=== PATIENT | male | born 1945 | race Caucasian/White ===

== ENCOUNTER 2021-04-16 13:32 | Observation (INO) | payer MEDICARE, MEDICAID, SELFPAY ==
[2021-04-16 13:42] VITALS: BP 130/87; PULSE 80; RESP 15; TEMP 37.1; O2SAT 96; BMI 33.5
--- NOTE | 2021-04-16 13:48 | ECG_ITS ---
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 Measurements Intervals [place] Rate: 83 P: 26 ID: 175 QRS: -30 QRSD: 107 T: 47 QT: 388 QTc: 457 Interpretive Statements SINUS RHYTHM BORDERLINE LEFT AXIS DEVIATION [QRS AXIS < -20] NONSPECIFIC T-WAVE ABNORMALITY No previous ECG available for comparison Electronically Signed On 04-16-2021 21:32:36 CDT by Jesus Velazquez M.D. [id number]
--- NOTE | 2021-04-16 13:48 | XRR_ITS ---
PROCEDURE INFORMATION: Exam: XR Chest Exam date and time: 04/16/2021 1:48 PM Age: 75 years old Clinical indication: Pain; On breathing; Additional info: Chest pain TECHNIQUE: Imaging protocol: XR of the chest. Views: 1 view. COMPARISON: No relevant prior studies available. FINDINGS: Lungs: Unremarkable. No consolidation. Pleural spaces: Unremarkable. No pleural effusion. No pneumothorax. Heart/Mediastinum: Unremarkable. No cardiomegaly. Bones/joints: Unremarkable. XR/XR chest 1V portable [id number] IMPRESSION: No acute findings.
[2021-04-16 13:58] VITALS: BP 130/87; PULSE 81; RESP 15; O2SAT 95
[2021-04-16 14:15] LABS: Basophils # 0.1 10^3/uL (0.0-0.1); Basophils % 0.6 %; Eosinophils % 0.2 %; Hematocrit 46.8 % (42.0-52.0); Hemoglobin 15.3 g/dL (11.7-16.6); Lymphocytes # 1.5 10^3/uL (0.8-4.8); Lymphocytes % 10.8 %; Mean Corpuscular HGB Conc 32.7 g/dL (30.0-36.0); Mean Corpuscular Hemoglobin 31.3 pg (28.0-34.0); Mean Corpuscular Volume 95.7 fl (80-94); Mean Platelet Volume 10.7 fL (7.4-10.4); Monocytes # 1.1 10^3/uL (0.2-0.9); Monocytes % 7.9 %; Neutrophils # 11.33 10^3/uL (1.8-7.7); Neutrophils % 80.2 %; Nucleated Red Blood Cells % 0 %; Platelet Count 196 10^3/cmm (130-400); Red Blood Count 4.89 10^6/uL (4.1-5.3); Red Cell Distribution Width 12.4 % (12.1-15.1); White Blood Count 14.1 10^3/uL (4.0-10.0)
[2021-04-16 14:35] LABS: Troponin(5th) Baseline 9 ng/L (0-15)
[2021-04-16 14:39] LABS: Blood Urea Nitrogen 13 mg/dL (8-23); Calcium 9.1 mg/dL (8.5-10.5); Carbon Dioxide 21 mmol/L (22-29); Chloride 102 mmol/L (98-107); Glucose 182 mg/dL (65-115); Osmolality Calculated 285 mOsm/kg (285-295); Sodium 135 mmol/L (136-145)
[2021-04-16 14:53] LABS: Anion Gap 16.6 (5-19); Potassium 4.6 mmol/L (3.5-5.1)
[2021-04-16 15:00] VITALS: BP 152/109; PULSE 75; RESP 22; O2SAT 97
[2021-04-16] MEDS: aspirin 325 mg Tablet PO (15:46)
[2021-04-16] MEDS: lidocaine 2% viscous 15 ML, aluminum-mag hydrox-simethicon 30 ML, sucralfate oral liq 1 GM PO (15:46)
--- NOTE | 2021-04-16 15:47 | W.ED.GENADLT ---
HPI - General Adult General: Chief complaint: Chest Pain Stated complaint: CHEST PAIN Time Seen by Provider: 04/16/21 13:33 History of Present Illness: HPI narrative: CC: Chest Pain HPI: This is a [75] yo patient hx of HTN, CVA DM presenting to the ED w/ acute onset intermittent substernal chest pain since 6pm yesterday night. Has shortness of breath since onset of symptom. Pain is not tearing in nature and does not radiate to the back. Denies any recent sympathomimetic drug use. Patient denies any cough. Denies palpitations, syncope symptoms. Pain not positional. No recent immobility, surgery, unilateral leg swelling, or prior PE. Patient denies any orthopnea, paroxysmal nocturnal dyspnea, weight gain, or increased leg swellings. One episode of nausea/vomiting today. Onset: 14 hrs ago Duration: ongoing for the last day Location: home Severity: moderate Review of Systems Narrative: Constitutional: No fever, no chills. HEENT: No vision changes, no sore throat. CV: +chest pain, no palpitations. PULM: No cough, +dyspnea. GI: No abdominal pain, +N/+V/-D. : No dysuria, no frequency, no hematuria. MSKEL: No arthralgias, no edema. SKIN: No new rashes, no lesions. NEURO: No headache, no focal weakness. HEME: No easy bleeding or bruising. PSYCH: No change in mood or affect. [facility] ED PFSH: Medical History (Updated 04/16/21 @ 16:46 by Juanjo Morgan MD) CVA (cerebral vascular accident) Dementia GERD (gastroesophageal reflux disease) Hiatal hernia HLD (hyperlipidemia) HTN (hypertension) Hypothyroid Type 2 diabetes mellitus Surgical History (Updated 04/16/21 @ 16:47 by Juanjo Morgan MD) No significant past surgical history Family History (Updated 04/16/21 @ 16:47 by Juanjo Morgan MD) Other CAD (coronary artery disease) Cancer Clotting disorder Diabetes Social History (Updated 04/16/21 @ 16:47 by Juanjo Morgan MD) Smoking and tobacco status: former smoker Alcohol intake: never Substance/Drug Use: never Caregiver/support person: No Lives independently: Yes Housing: Other Details: trailor Marital status: / Physical Exam Narrative: EXAM NARRATIVE: Head: Atraumatic, normocephalic Eyes: PERRL, EOMI, conjunctiva without injection ENT: Throat without erythema, lesions or exudate, MMM NECK: Supple, trachea midline, no JVD LUNGS: LCTA CV: RRR, S1,S2, no murmurs, rubs, gallops. 2+ peripheral pulses in UEs ABDOMEN: Soft, nontender, nondistended, BS x4, no rigidity, no guarding, no rebound EXTREMITY: Normal ROM, no pitting edema, no calf tenderness to palpation SKIN: No rash or erythema NEURO: Awake and alert. No focal motor deficits. PSYCH: Normal mood and affect. Course Vital Signs: Vital signs: Vital Signs Temperature 98.1 F 04/17/21 04:00 Pulse Rate 65 04/17/21 04:00 Respiratory Rate 16 04/17/21 04:00 Blood Pressure 118/68 04/17/21 04:00 Pulse Oximetry 94 04/17/21 04:00 MDM - General Adult MDM Narrative: Medical decision making narrative: [75]yo patient w/ extensive cardiac hx presenting to the ED With acute substernal chest pain X 14 hrs. Currently chest pain free Given History And Exam today I have moderate to high suspicion for ACS/UA/NSTEMI. Today, I have NO suspicion for pneumothorax, pneumonia, pulmonary embolus, tamponade, aortic dissection or other emergent problem as a cause for this presentation. ECG did not show any signs of acute STEMI. Workup: ECG, CXR, CBC, BMP, Troponin Findings: ECG: No overt evidence of STEMI, hyperacute T waves, localizable STD or T wave inversions. Intervention: ASA 324mg [3:20pm] On reassessment, the patient is currently chest pain free. S/p ASA 325mg. Initial ECG showed no overt STEs. Patient did not require a nitroglycerin drip to control chest pain. Pending repeat troponin. Disposition: Inpatient admission Lab Data: Labs: Lab Results 04/16/21 04/16/21 04/16/21 Range/Units 14:00 14:00 14:00 WBC 14.1 H (4.0-10.0) 10^3/ uL RBC 4.89 (4.1-5.3) 10^6/u L Hgb 15.3 (11.7-16.6) g/dL Hct 46.8 (42.0-52.0) % MCV 95.7 H (80-94) fl MCH 31.3 (28.0-34.0) pg MCHC 32.7 (30.0-36.0) g/dL RDW 12.4 (12.1-15.1) % Plt Count 196 (130-400) 10^3/c mm MPV 10.7 H (7.4-10.4) fL Neut % (Auto) 80.2 % Lymph % (Auto) 10.8 % Labette % (Auto) 7.9 % Eos % (Auto) 0.2 % Baso % (Auto) 0.6 % Neut # (Auto) 11.33 H (1.8-7.7) 10^3/u L Lymph # (Auto) 1.5 (0.8-4.8) 10^3/u L Labette # (Auto) 1.1 H (0.2-0.9) 10^3/u L Eos # (Auto) 0.0 (0.0-0.8) 10^3/u L Baso # (Auto) 0.1 (0.0-0.1) 10^3/u L Nucleated RBC % (a uto) 0 % Nucleated RBCs # 0.0 /100WBC Sodium 135 L (136-145) mmol/L Potassium 4.6 (3.5-5.1) mmol/L Chloride 102 (98-107) mmol/L Carbon Dioxide 21 L (22-29) mmol/L Anion Gap 16.6 (5-19) BUN 13 (8-23) mg/dL Creatinine 0.5 L (0.7-1.2) mg/dL GFR Calculation Not Reportable Glucose 182 H (65-115) mg/dL Calculated Osmolal ity 285 (285-295) mOsm/k g Calcium 9.1 (8.5-10.5) mg/dL Iron (59-158) ug/dL TIBC mcg/dl % Saturation (20-50) % Unsat Iron Binding (112-347) ug/dL Total Bilirubin (0.15-1.2) mg/dL Direct Bilirubin (0.00-0.30) mg/d L AST (0-40) U/L ALT (0-41) U/L Alkaline Phosphata se (40-130) IU/L Troponin T Baselin e 9 (0-15) ng/L NT-Pro-B Natriuret Pep (0-125) pg/mL Total Protein (6.6-8.7) g/dL Albumin (3.5-5.2) g/dL Globulin (1.3-4.6) g/dL Vitamin B12 (232-1245) pg/mL Folate (4.5-32.2) ng/mL Procalcitonin (0-0.5) ng/mL TSH (0.27-4.20) uIU/ mL SARS-CoV-2 Ag (Rap id) (Negative) 04/16/21 04/16/21 04/16/21 Range/Units 14:00 14:00 14:00 WBC (4.0-10.0) 10^3/ uL RBC (4.1-5.3) 10^6/u L Hgb (11.7-16.6) g/dL Hct (42.0-52.0) % MCV (80-94) fl MCH (28.0-34.0) pg MCHC (30.0-36.0) g/dL RDW (12.1-15.1) % Plt Count (130-400) 10^3/c mm MPV (7.4-10.4) fL Neut % (Auto) % Lymph % (Auto) % Labette % (Auto) % Eos % (Auto) % Baso % (Auto) % Neut # (Auto) (1.8-7.7) 10^3/u L Lymph # (Auto) (0.8-4.8) 10^3/u L Labette # (Auto) (0.2-0.9) 10^3/u L Eos # (Auto) (0.0-0.8) 10^3/u L Baso # (Auto) (0.0-0.1) 10^3/u L Nucleated RBC % (a uto) % Nucleated RBCs # /100WBC Sodium (136-145) mmol/L Potassium (3.5-5.1) mmol/L Chloride (98-107) mmol/L Carbon Dioxide (22-29) mmol/L Anion Gap (5-19) BUN (8-23) mg/dL Creatinine (0.7-1.2) mg/dL GFR Calculation Glucose (65-115) mg/dL Calculated Osmolal ity (285-295) mOsm/k g Calcium (8.5-10.5) mg/dL Iron 48 L (59-158) ug/dL TIBC 327 mcg/dl % Saturation 14.6 L (20-50) % Unsat Iron Binding 279 (112-347) ug/dL Total Bilirubin 2.1 H (0.15-1.2) mg/dL Direct Bilirubin 0.30 (0.00-0.30) mg/d L AST 24 (0-40) U/L ALT 23 (0-41) U/L Alkaline Phosphata se 65 (40-130) IU/L Troponin T Baselin e (0-15) ng/L NT-Pro-B Natriuret Pep 218 H (0-125) pg/mL Total Protein 7.3 (6.6-8.7) g/dL Albumin 4.2 (3.5-5.2) g/dL Globulin 3.1 (1.3-4.6) g/dL Vitamin B12 (232-1245) pg/mL Folate (4.5-32.2) ng/mL Procalcitonin 0.06 (0-0.5) ng/mL TSH 1.37 (0.27-4.20) uIU/ mL SARS-CoV-2 Ag (Rap id) (Negative) 04/16/21 04/16/21 04/16/21 Range/Units 14:00 14:00 14:55 WBC (4.0-10.0) 10^3/ uL RBC (4.1-5.3) 10^6/u L Hgb (11.7-16.6) g/dL Hct (42.0-52.0) % MCV (80-94) fl MCH (28.0-34.0) pg MCHC (30.0-36.0) g/dL RDW (12.1-15.1) % Plt Count (130-400) 10^3/c mm MPV (7.4-10.4) fL Neut % (Auto) % Lymph % (Auto) % Labette % (Auto) % Eos % (Auto) % Baso % (Auto) % Neut # (Auto) (1.8-7.7) 10^3/u L Lymph # (Auto) (0.8-4.8) 10^3/u L Labette # (Auto) (0.2-0.9) 10^3/u L Eos # (Auto) (0.0-0.8) 10^3/u L Baso # (Auto) (0.0-0.1) 10^3/u L Nucleated RBC % (a uto) % Nucleated RBCs # /100WBC Sodium (136-145) mmol/L Potassium (3.5-5.1) mmol/L Chloride (98-107) mmol/L Carbon Dioxide (22-29) mmol/L Anion Gap (5-19) BUN (8-23) mg/dL Creatinine (0.7-1.2) mg/dL GFR Calculation Glucose (65-115) mg/dL Calculated Osmolal ity (285-295) mOsm/k g Calcium (8.5-10.5) mg/dL Iron (59-158) ug/dL TIBC mcg/dl % Saturation (20-50) % Unsat Iron Binding (112-347) ug/dL Total Bilirubin (0.15-1.2) mg/dL Direct Bilirubin (0.00-0.30) mg/d L AST (0-40) U/L ALT (0-41) U/L Alkaline Phosphata se (40-130) IU/L Troponin T Baselin e (0-15) ng/L NT-Pro-B Natriuret Pep (0-125) pg/mL Total Protein (6.6-8.7) g/dL Albumin (3.5-5.2) g/dL Globulin (1.3-4.6) g/dL Vitamin B12 344 (232-1245) pg/mL Folate 8.8 (4.5-32.2) ng/mL Procalcitonin (0-0.5) ng/mL TSH (0.27-4.20) uIU/ mL SARS-CoV-2 Ag (Rap id) Negative (Negative) Imaging Data^: Other Imaging: Radiologist's impression: [employer] [address]JBsm ReportSigned Patient: Usama Pisano #: [id number]: 1945cct#:[id number]/Sex: 75 / MADM Date: 04/16/21Loc: ERRoom/Bed:Attending Dr: Ordering Provider/Ordering MD: Hernandez Jasso MD Date of Service: 04/16/21 Procedure(s): XR chest 1V portable [id number] Accession Number(s): [id number] Report Number: [id number] PROCEDURE INFORMATION: Exam: XR Chest Exam date and time: 04/16/2021 1:48 PM Age: 75 years old Clinical indication: Pain; On breathing; Additional info: Chest pain TECHNIQUE: Imaging protocol: XR of the chest. Views: 1 view. COMPARISON: No relevant prior studies available. FINDINGS: Lungs: Unremarkable. No consolidation. Pleural spaces: Unremarkable. No pleural effusion. No pneumothorax. Heart/Mediastinum: Unremarkable. No cardiomegaly. Bones/joints: Unremarkable. XR/XR chest 1V portable [id number] IMPRESSION: No acute findings. Dictated By:Kelly Cobb By:Kelly Cobb Date/Time:04/16/21 1514DD/ 1513 Discharge Plan Discharge Patient Disposition: Admitted As Inpatient Admit Provider: Juanjo Morgan Clinical Impression: Chest pain Condition: Stable Coding Level of Care Code ED Consulting Analyst for Francisco J Friedman
--- NOTE | 2021-04-16 15:48 | ECG_ITS ---
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 Measurements Intervals [place] Rate: 76 P: 12 [place]: 182 QRS: -25 QRSD: 108 T: 52 QT: 387 QTc: 437 Interpretive Statements SINUS RHYTHM BORDERLINE LEFT AXIS DEVIATION [QRS AXIS < -20] NONSPECIFIC T-WAVE ABNORMALITY Compared to ECG 04/16/2021 13:58:13 No significant changes Electronically Signed On 04-16-2021 22:07:10 CDT by Jesus Velazquez M.D. [id number]
[2021-04-16 15:49] VITALS: BP 162/90; PULSE 85; RESP 21; O2SAT 98
--- NOTE | 2021-04-16 15:52 | PC.PHAR ---
pt unable to verify due to memory problems. pt states his daughter can verify medications. Called Daughter Desire at [phone] with no answer.
[2021-04-16 15:57] LABS: SARS Covid-2 Antigen Negative (Negative)
--- NOTE | 2021-04-16 16:13 | CTR_ITS ---
PROCEDURE INFORMATION: Exam: CTA Chest With Contrast Exam date and time: 04/16/2021 4:13 PM Age: 75 years old Clinical indication: Other: Chest pain; Additional info: Chest pain, ? ? pe, TECHNIQUE: Imaging protocol: Computed tomographic angiography of the chest with contrast. 3D rendering (Not supervised by radiologist): MIP and/or 3D reconstructed images were created by the technologist. Radiation optimization: All CT scans at this facility use at least one of these dose optimization techniques: automated exposure control; mA and/or kV adjustment per patient size (includes targeted exams where dose is matched to clinical indication); or iterative reconstruction. Contrast material: OMNI 350; Contrast volume: 74 ml; Contrast route: INTRAVENOUS (IV); COMPARISON: CR (CHEST, ) 04/16/2021 2:26 PM RADIATION DOSE METRICS: Total DLP (mGy-cm): 1002.88 FINDINGS: Pulmonary arteries: Normal. No pulmonary emboli. Aorta: Unremarkable. No aortic aneurysm. No aortic dissection. Lungs: Unremarkable. No consolidation. No masses. Pleural spaces: Unremarkable. No pneumothorax. No pleural effusion. Heart: Unremarkable. No cardiomegaly. No pericardial effusion. Heavy coronary artery calcifications Lymph nodes: Unremarkable. No enlarged lymph nodes. Bones/joints: Unremarkable. No acute fracture. Soft tissues: Unremarkable. CT/CT angio chest PE protcl [id number] IMPRESSION: 1. Negative for proximal pulmonary embolism. 2. Heavy coronary artery calcifications. 3. Otherwise No acute findings. Radiation Dose CTDIVOL = (mGy): DLP = 1002.88 (mGy-cm)
--- NOTE | 2021-04-16 16:14 | PM.HP ---
Providers/Chief Complaint Primary Care Provider: Hector Graham Chief Complaint: CHEST PAIN History of Present Illness Usama Pisano is a 75 year old male with past medical history significant for hypertension, type 2 diabetes mellitus, hyperlipidemia, hypothyroidism, dementia, GERD, hiatal hernia, stroke 2 years ago who presented to the ER with his daughter today because of complaining of central chest pain going on since last 18 hours. Pain is cramping in nature, at worst 6/10. Symptoms are not associated with nausea, vomiting, dizziness, palpitations, hemoptysis. Daughter states patient lives by himself and because of the pain had gone to her neighbors overnight who called her. When daughter reached home she found her to be cold and clammy so called the EMS and he was brought to the ER. Denies any fever, cough, recent exposure to COVID-19. Patient is a life time non-smoker, has significant family cardiac history with brother having a quadruple bypass 5 years ago, multiple other family members having history of CAD, stroke and cancer. Review of Systems General: Reports: 10 or more systems reviewed and unremarkable except in HPI and below Const: Denies: fever(s), chills, body aches, change in appetite, change in weight, malaise, night sweats, diaphoresis, change in sleep pattern, daytime sleepiness or snoring Eyes: Denies: change in vision, blurry vision, photophobia, eye discomfort or eye discharge ENMT: Denies: throat pain, enlarged tonsils, hoarseness, mouth pain, oral sores, dry mouth, tinnitus, nasal congestion or post nasal drip Card: Denies: chest pain, palpitations, irregular heart rhythm, edema, swelling of feet/ankles, lightheadedness, syncope, pre-syncope, dyspnea on exertion, orthopnea, leg pain with exertion or acrocyanosis Resp: Denies: dyspnea, productive cough, non-productive cough, wheezing, stridor, pain on inspiration, change in phlegm color, hemoptysis or chest congestion GI: Denies: abdominal pain, nausea, vomiting, hematemesis, coffee ground emesis, dysphagia, heartburn, diarrhea, constipation, bloating, GI cramping, change in bowel habits, pain on defecation, hematochezia or melena : Denies: flank pain, difficulty urinating, dysuria, urinary frequency, urinary urgency, urinary hesitancy, urinary dribbling, difficulty starting urination, change in urine stream, nocturia or hematuria Musc: Denies: neck pain, back pain, extremity pain, joint pain, joint swelling, joint redness, joint stiffness or limited range of motion Neuro: Denies: headache(s), numbness in extremities, weakness in extremities, sensory changes, lack of coordination, difficulty walking, frequent falls, dizziness, vertigo, confusion, Slurred speech present, difficulty communicating thoughts or seizure-like activity Psych: Denies: anxiety, depression, mood swings, panic attacks, hopelessness or irritability Endo: Denies: polyuria, polydipsia, tired all the time, cold intolerance, excessive sweating, flushing or heat intolerance Barron/Lymph: Denies: easy bruising or easy bleeding All/Imm: Denies: tongue swelling, facial swelling or acute wheezing Medications/Allergies Home Medications Medication Instructions Recorded Confirmed Last Taken Type atorvastatin 40 mg PO DAILY 04/16/21 04/16/21 04/15/21 History levothyroxine 50 mcg PO DAILY 04/16/21 04/16/21 04/15/21 History lisinopril 10 mg PO DAILY 04/16/21 04/16/21 04/15/21 History memantine 28 mg PO DAILY 04/16/21 04/16/21 04/15/21 History metformin 500 mg PO DAILY 04/16/21 04/16/21 04/15/21 History naproxen 500 mg PO BID PRN 04/16/21 04/16/21 Unknown History Allergies Allergy/AdvReac Type Severity Reaction Status Date / Time Unable to Assess Allergy Unverified 04/16/21 15:52 PFSH Acute PFSH: Medical History (Updated 04/16/21 @ 16:46 by Juanjo Morgan MD) CVA (cerebral vascular accident) Dementia GERD (gastroesophageal reflux disease) Hiatal hernia HLD (hyperlipidemia) HTN (hypertension) Hypothyroid Type 2 diabetes mellitus Surgical History (Updated 04/16/21 @ 16:47 by Juanjo Morgan MD) No significant past surgical history Family History (Updated 04/16/21 @ 16:47 by Juanjo Morgan MD) Other CAD (coronary artery disease) Cancer Clotting disorder Diabetes Social History (Updated 04/16/21 @ 16:47 by Juanjo Morgan MD) Smoking and tobacco status: former smoker Alcohol intake: never Substance/Drug Use: never Caregiver/support person: No Lives independently: Yes Housing: Other Details: trailor Marital status: / Vitals/I&O/Wt Last Vital Signs Temp 98.7 F 04/16/21 13:42 Pulse 85 04/16/21 15:49 Resp 21 H 04/16/21 15:49 BP 162/90 04/16/21 15:49 Pulse Ox 98 04/16/21 15:49 Weight last 48 hrs Weight 88.451 kg Physical Exam Narrative: EXAM NARRATIVE: General: No acute distress, AO x3 HEENT: PERRLA, pupils bilaterally equal and reactive Chest: Normal vesicular breath sounds, no added sounds, equal good air entry bilaterally CVS: S1-S2 regular, no murmurs, no tachycardia, no gallops, no rubs Abdomen: Soft, nontender, no organomegaly, bowel sounds present Neuro: No focal deficits, no facial deformity, AO x3, power 5/5 in all limbs Data : 04/17/21 06:12 04/17/21 06:12 A&P Assessment and plan (1) Chest pain: Status: Acute (2) HTN (hypertension): Status: Acute (3) Type 2 diabetes mellitus: Status: Acute (4) HLD (hyperlipidemia): Status: Acute (5) Dementia: Status: Acute (6) GERD (gastroesophageal reflux disease): Status: Acute Additional A&P Information Chest pain: Rule out unstable angina. Cycle troponins, check D-dimer, lipid panel, A1c, echocardiogram, proBNP, CTA to rule out aortic dissection. Continue with home dose of baby aspirin, atorvastatin. Famotidine twice daily, Maalox as needed. Zofran as needed. Morphine 1 mg every 4 hours as needed. Oxygen supplementation keeping saturation over 90%. Plan for Lexiscan stress test. N.p.o. after midnight. Hypertension: Goal blood pressure less than 140/90 mmHg. Continue with home dose of lisinopril. If needed will add metoprolol. Type 2 diabetes mellitus: Check HbA1c as above. Insulin sliding scale at low-dose protocol. History of dementia: Continue with Namenda. Frequent orientation. Check iron panel, ferritin, vitamin B12, folate level, lipid panel, A1c, TSH, urinalysis, liver panel. CODE STATUS: Full code. Carb consistent cardiac diet. N.p.o. after midnight. Famotidine for PUD prophylaxis. Lovenox for DVT prophylaxis. Attestations Medical Necessity Statement*: Admission for most likely less than 2 midnights for evaluation of chest pain Time Spent in Patient Care: Greater than 35 minutes (>than 50% of time spent in counselling and/or direct pt care on unit). Coding Level of Care Code Acute Global Engineering Manager for Chg Fwd Diagnoses Chest pain R07.9 HTN (hypertension) I10 Type 2 diabetes mellitus E11.9 HLD (hyperlipidemia) E78.5 Dementia F03.90 GERD (gastroesophageal reflux disease) K21.9
[2021-04-16 16:44] LABS: NT Pro B Type Natriuretic Pept 218 pg/mL (0-125); Procalcitonin 0.06 ng/mL (0-0.5)
[2021-04-16 16:45] LABS: Thyroid Stimulating Hormone 1.37 uIU/mL (0.27-4.20)
[2021-04-16 16:45] LABS: Add Urine Microscopic? NO; Charge for UA Resulting for Rev
[2021-04-16] MEDS: iohexol 350 mg/mL 100 mL Btl IV (16:50)
[2021-04-16 16:56] LABS: Iron 48 ug/dL (59-158)
--- NOTE | 2021-04-16 17:01 | ECG_ITS ---
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 The perfusion scan will be documented separately. DATA: Baseline heart rate was 83 beats per minute. Baseline blood pressure was 110/83 millimeters of mercury. Target heart rate was 146. Maximum heart rate achieved was 76. which was 52 % of the predicted target heart rate. Maximum blood pressure was 128/70 millimeters of mercury. The reason for ending the test was completion of the protocol. The patient did not experience any symptoms. ELECTROCARDIOGRAM: BASELINE: Sinus rhythm. Normal axis. Otherwise, no ST-T changes suggestive of ischemia noted. No arrhythmia noted. EXERCISE: After Lexiscan injection, no ST-T changes suggestive of ischemic noted. No arrhythmia noted. 1. EKG not suggestive of ischemia 2. Lexiscan injection unremarkable. 3. Perfusion scan will be documented separately. Electronically Signed On 04-19-2021 21:15:13 CDT by ALMAS BABB [id number]
[2021-04-16 17:03] LABS: Bilirubin Urine Neg (Negative); Blood Urine Neg (Negative); Glucose Urine UA 4+ (Normal); Ketones Urine 1+ (Negative); Leukocyte Esterase Urine Negative (Negative); Nitrate Urine Negative (Negative); Protein Urine Neg (Negative); Specific Gravity, Urine 1.025 (1.005-1.030); Urine Appearance Clear (CLEAR); Urine Color Yellow (Yellow); Urobilinogen Urine Norm (Negative); pH Urine 5 (5-7)
[2021-04-16 17:04] LABS: Percent Saturation 14.6 % (20-50); Total Iron Binding Capacity 327 mcg/dl; Unsaturated Iron Binding 279 ug/dL (112-347)
[2021-04-16 17:11] LABS: Alanine Aminotransferase 23 U/L (0-41); Albumin Level 4.2 g/dL (3.5-5.2); Alkaline Phosphatase 65 IU/L (40-130); Globulin 3.1 g/dL (1.3-4.6); Total Bilirubin 2.1 mg/dL (0.15-1.2); Total Protein 7.3 g/dL (6.6-8.7)
[2021-04-16 17:39] LABS: Aspartate Amino Transferase 24 U/L (0-40)
[2021-04-16 18:04] LABS: Folate Level 8.8 ng/mL (4.5-32.2)
[2021-04-16 18:05] LABS: Vitamin B12 344 pg/mL (232-1245)
[2021-04-16 19:44] VITALS: BP 150/76; PULSE 75; RESP 18; TEMP 37.5; O2SAT 93
[2021-04-16] MEDS: enoxaparin 40 mg/0.4 mL Syringe SUBCUT (21:17)
[2021-04-16] MEDS: metoprolol tartrate 25 mg Tablet PO (21:18)
[2021-04-16] MEDS: famotidine 20 mg/2 mL INJ IVP (21:18)
--- NOTE | 2021-04-16 21:32 | PC.NURSE ---
DAUGHTER AT BEDSIDE WITH PATIENT. HE IS CURRENTLY ALERT AND ORIENTED, BUT HAD TO PAUSE AND THINK ABOUT WHAT HE DID FOR A LIVING AND WHERE HE LIVED WHEN ASKED. HE IS PLEASANT AND VERBALIZED UNDERSTANDING OF MEDICATIONS BEING ADMINISTERED. EXPLAINED TO PT AND DAUGHTER THAT HE WILL HAVE A LEXISCAN STRESS TEST ON SUNDAY MORNING. THEY DENIED ANY QUESTIONS AT THIS TIME.
[2021-04-16 23:31] VITALS: BP 119/59; PULSE 67; RESP 16; TEMP 36.5; O2SAT 95
[2021-04-17] VITALS (9 sets, daily range): BP systolic 93–127; BP diastolic 61–74; PULSE 56–78; RESP 16–20; TEMP 36.3–37.6; O2SAT 92–97
[2021-04-17 06:31] LABS: Basophils # 0.1 10^3/uL (0.0-0.1); Basophils % 0.6 %; Eosinophils # 0.3 10^3/uL (0.0-0.8); Hematocrit 44.1 % (42.0-52.0); Hemoglobin 14.7 g/dL (11.7-16.6); Lymphocytes # 1.9 10^3/uL (0.8-4.8); Mean Corpuscular HGB Conc 33.3 g/dL (30.0-36.0); Mean Corpuscular Hemoglobin 30.4 pg (28.0-34.0); Mean Corpuscular Volume 91.3 fl (80-94); Mean Platelet Volume 10.2 fL (7.4-10.4); Monocytes # 1.3 10^3/uL (0.2-0.9); Monocytes % 10.6 %; Neutrophils # 8.94 10^3/uL (1.8-7.7); Neutrophils % 71.5 %; Nucleated Red Blood Cells % 0 %; Platelet Count 236 10^3/cmm (130-400); Red Blood Count 4.83 10^6/uL (4.1-5.3); Red Cell Distribution Width 12.4 % (12.1-15.1); White Blood Count 12.5 10^3/uL (4.0-10.0)
[2021-04-17 06:59] LABS: Alanine Aminotransferase 21 U/L (0-41); Albumin Level 3.8 g/dL (3.5-5.2); Alkaline Phosphatase 61 IU/L (40-130); Anion Gap 14.2 (5-19); Aspartate Amino Transferase 19 U/L (0-40); Blood Urea Nitrogen 11 mg/dL (8-23); Calcium 8.5 mg/dL (8.5-10.5); Carbon Dioxide 22 mmol/L (22-29); Chloride 102 mmol/L (98-107); Chol HDL Ratio 2.32 mg/dL (1.0-5.00); Cholesterol 130 mg/dL (0-200); Globulin 3.3 g/dL (1.3-4.6); Glucose 206 mg/dL (65-115); HDL Cholesterol 56 mg/dL (60-100); LDL Cholesterol Calculated 52 mg/dL (50-129); Magnesium 2.1 mg/dL (1.7-2.3); Osmolality Calculated 283 mOsm/kg (285-295); Potassium 4.2 mmol/L (3.5-5.1); Sodium 134 mmol/L (136-145); Total Bilirubin 2.6 mg/dL (0.15-1.2); Total Protein 7.1 g/dL (6.6-8.7); Triglycerides 109 mg/dL (0-150); VLDL Cholestrol Calculation 22 mg/dL (0-30)
[2021-04-17] MEDS: famotidine 20 mg/2 mL INJ IVP ×2 (07:28→18:52)
[2021-04-17 08:17] LABS: Estmated Average Glucose 163; Hemoglobin A1C 7.3 % (4.0-6.0)
[2021-04-17] MEDS: atorvastatin 40 mg Tablet PO (09:23)
[2021-04-17] MEDS: levothyroxine 50 mcg Tablet PO (09:23)
[2021-04-17] MEDS: lisinopril 10 mg Tablet PO (09:23)
[2021-04-17] MEDS: metoprolol tartrate 25 mg Tablet PO ×2 (09:24→20:31)
[2021-04-17 12:57] LABS: Glucose Point of Care 260 mg/dL (70-110)
--- NOTE | 2021-04-17 15:08 | PM.PN ---
Subjective Subjective: Interval history: No acute events overnight. Patient states he has not had any further chest pain. Denies any nausea, vomiting, headache. Has remained hemodynamically stable on room air. Vitals/I&O/Wt Last Vital Signs Temp 97.4 F L 04/17/21 12:00 Pulse 78 04/17/21 12:00 Resp 16 04/17/21 12:00 BP 93/62 04/17/21 12:00 Pulse Ox 97 04/17/21 12:00 04/17/21 04/17/21 04/17/21 06:59 14:59 22:59 Intake Total 480 / 480 Balance 480 / 480 Weight last 48 hrs Weight 79.605 kg Weight 88.451 kg Physical Exam Narrative: EXAM NARRATIVE: General: No acute distress, AO x3 HEENT: PERRLA, pupils bilaterally equal and reactive Chest: Normal vesicular breath sounds, no added sounds, equal good air entry bilaterally CVS: S1-S2 regular, no murmurs, no tachycardia, no gallops, no rubs Abdomen: Soft, nontender, no organomegaly, bowel sounds present Neuro: No focal deficits, no facial deformity, AO x3, power 5/5 in all limbs Data : 04/17/21 06:12 04/17/21 06:12 Other Labs: Impressions Chest X-Ray 04/16/21 13:48 IMPRESSION: No acute findings. Chest CTA 04/16/21 16:13 IMPRESSION: 1. Negative for proximal pulmonary embolism. 2. Heavy coronary artery calcifications. 3. Otherwise No acute findings. Radiation Dose CTDIVOL = (mGy): DLP = 1002.88 (mGy-cm) A&P Assessment and plan (1) Chest pain: Status: Acute (2) HTN (hypertension): Status: Acute (3) Type 2 diabetes mellitus: Status: Acute (4) HLD (hyperlipidemia): Status: Acute (5) Dementia: Status: Acute (6) GERD (gastroesophageal reflux disease): Status: Acute Additional A&P Information Chest pain: Rule out unstable angina. Troponin cycle negative. Appreciate result of HbA1c and lipid panel. CT results appreciated. Negative for pulmonary embolism or aortic dissection. Echocardiogram shows an EF 55 to 60% with grade 1 diastolic dysfunction, trace MR, mild AI. Continue with home dose of baby aspirin, atorvastatin. Famotidine twice daily, Maalox as needed. Zofran as needed. Morphine 1 mg every 4 hours as needed. Oxygen supplementation keeping saturation over 90%. Plan for Lexiscan stress test. N.p.o. after midnight. Hypertension: Goal blood pressure less than 140/90 mmHg. Continue with home dose of lisinopril. If needed will add metoprolol. Type 2 diabetes mellitus: HbA1c 7.4. Insulin sliding scale at low-dose protocol. History of dementia: Continue with Namenda. Frequent orientation. Check iron panel, ferritin, vitamin B12, folate level, lipid panel, A1c, TSH, urinalysis, liver panel. CODE STATUS: Full code. Carb consistent cardiac diet. N.p.o. after midnight. Famotidine for PUD prophylaxis. Lovenox for DVT prophylaxis. Attestations Medical Necessity Statement*: Requires further hospitalization for further evaluation of chest pain with Lexiscan stress test tomorrow morning. Time Spent in Patient Care: Greater than 35 minutes (>than 50% of time spent in counselling and/or direct pt care on unit). Coding Level of Care Code Acute [place] Waitress/Waiter for Chg Fwd Diagnoses Chest pain R07.9 HTN (hypertension) I10 Type 2 diabetes mellitus E11.9 HLD (hyperlipidemia) E78.5 Dementia F03.90 GERD (gastroesophageal reflux disease) K21.9
--- NOTE | 2021-04-17 16:11 | USCV_ITS ---
Pisano Usama Age: 75 Gender: M : 1945 Exam Date: 04/17/2021 07:17 Ordering Phys: Juanjo Morgan MD Technologist: Belinda Moody [place] [facility] [place]: CAD BP: 118 / 68 HR: 65 Rhythm: Sinus Technical Quality: Fair MEASUREMENTS (Male / Female) Normal Values 2D ECHO LV Diastolic Diameter PLAX 3.8 cm 4.2 - 5.9 / 3.9 - 5.3 cm LV Systolic Diameter PLAX 2.7 cm LV Chamber Size 3.0 cm IVS Diastolic Thickness 1.4 cm 0.6 - 1.0 / 0.6 - 0.9 cm IVS Systolic Thickness 1.8 cm LVPW Diastolic Thickness 1.4 cm 0.6 - 1.0 / 0.6 - 0.9 cm LVPW Systolic Thickness 1.8 cm RV Chamber Size 1.9 cm LVOT Diameter 1.8 cm LV Ejection Fraction 2D Teich 57.2 % LV Ejection Fraction MOD 2C 58.4 % LV Ejection Fraction 2C AL 60.6 % LA Diameter 3.0 cm LA Width 2.5 cm LA Height 4.8 cm RA Width 2.4 cm RA Height 4.0 cm Aorta at Sinotubular Diameter 2.0 cm M-MODE LV Diastolic Diameter MM 5.0 cm 4.2 - 5.9 / 3.9 - 5.3 cm LV Systolic Diameter MM 3.3 cm LV Ejection Fraction MM Teich 63.1 % IVS Diastolic Thickness MM 0.9 cm 0.6 - 1.0 / 0.6 - 0.9 cm IVS Systolic Thickness MM 1.1 cm LVPW Diastolic Thickness MM 1.5 cm 0.6 - 1.0 / 0.6 - 0.9 cm LVPW Systolic Thickness MM 1.7 cm RV Diastolic Diameter MM 1.1 cm Aortic Annulus Diameter 3.0 cm LA Ao Ratio MM 1.3 DOPPLER AV Peak Velocity 128.0 cm/s LVOT Peak Velocity 98.0 cm/s AV Area Cont Eq vti 2.4 cm squared AV Area Cont Eq pk 2.1 cm squared MV Area PHT 3.9 cm squared Mitral E to A Ratio 0.8 MV E' Velocity 38.5 cm/s Mitral E to MV E' Ratio 8.7 Mitral E to LV E' Lateral Ratio 6.8 Mitral E to LV E' Septal Ratio 12.2 TV Peak E Velocity 52.0 cm/s Right Atrial Pressure 3.0 mmHg PV Peak Velocity 53.0 cm/s RV Acceleration Time 0.1 s RV Ejection Time 0.3 s RV AcT/ET 0.4 FINDINGS Left Ventricle Normal left ventricular size. LV systolic function is normal with EF of 55-60%. No regional wall motion abnormalities. Grade 1 diastolic dysfunction Right Ventricle The right ventricle is normal in size and function. Right Atrium The right atrium is normal in size. Left Atrium The left atrium is normal in size. Mitral Valve Structurally normal mitral valve without significant stenosis or prolapse. There is trace mitral regurgitation. Aortic Valve Structurally normal aortic valve without significant sclerosis or stenosis. There is mild aortic regurgitation. Tricuspid Valve Structurally normal tricuspid valve without significant stenosis or regurgitation. Insufficient TR jet to calculate RVSP Pulmonic Valve Structurally normal pulmonic valve without significant stenosis. There is mild pulmonic regurgitation. Pericardium Normal pericardium without effusion. Aorta Normal ascending aorta dimension. CONCLUSIONS LV systolic function is normal with EF of 55-60% Grade 1 diastolic dysfunction Trace mitral regurgitation Mild aortic regurgitation Mild pulmonic regurgitation No comparison studies are available Jesus Velazquez MD (Electronically Signed) Final Date: 17 April 2021 13:40 S
[2021-04-17 17:33] LABS: Glucose Point of Care 173 mg/dL (70-110)
[2021-04-17] MEDS: memantine 5 mg tablet 10 MG PO (18:08)
[2021-04-17] MEDS: enoxaparin 40 mg/0.4 mL Syringe SUBCUT (18:08)
[2021-04-18] VITALS: BP 108/58; PULSE 56; RESP 16; TEMP 37.3; O2SAT 93
[2021-04-18 04:00] VITALS: BP 122/72; PULSE 57; RESP 16; TEMP 36.7; O2SAT 92
[2021-04-18] MEDS: famotidine 20 mg/2 mL INJ IVP (05:19)
[2021-04-18 05:31] LABS: Glucose Point of Care 163 mg/dL (70-110)
--- NOTE | 2021-04-18 05:38 | NUR.SHIFT ---
Patient AAOx4, resting in bed, daughter at bedside, no needs at this time, repositions self frequently. Room clutter free and call light in reach. NPO since midnight for procedure today. WIll report to oncoming nurse and handoff at shift change.
[2021-04-18 08:00] VITALS: BP 132/80; PULSE 78; RESP 18; TEMP 36.9; O2SAT 95
[2021-04-18] MEDS: regadenoson 0.4 Mg/5 ml Syringe IVP (08:31)
[2021-04-18] MEDS: ondansetron 2 mg/ML SDV 2 mL 4 MG IVP (08:31)
[2021-04-18 08:42] VITALS: BP 99/54; PULSE 66
[2021-04-18 10:24] LABS: Glucose Point of Care 169 mg/dL (70-110)
[2021-04-18] MEDS: atorvastatin 40 mg Tablet PO (10:55)
[2021-04-18] MEDS: memantine 5 mg tablet 10 MG PO (10:56)
[2021-04-18] MEDS: levothyroxine 50 mcg Tablet PO (10:56)
[2021-04-18] MEDS: lisinopril 10 mg Tablet PO (10:56)
[2021-04-18] MEDS: metoprolol tartrate 25 mg Tablet PO (10:56)
[2021-04-18 11:31] LABS: Glucose Point of Care 228 mg/dL (70-110)
[2021-04-18 11:43] VITALS: BP 116/72; PULSE 51; RESP 17; TEMP 36.7; O2SAT 95
--- NOTE | 2021-04-18 14:02 | P.DS_ITS ---
Discharge Providers Date of Admission: 04/16/21 17:01 Date of Discharge: April 18, 2021 Attending Provider at Admission: Juanjo Morgan MD Attending Provider at Discharge: Juanjo Morgan MD Primary Care Provider: Hector Graham Diagnoses at Discharge Discharge Diagnosis (1) Chest pain: Status: Acute (2) HTN (hypertension): Status: Acute (3) Type 2 diabetes mellitus: Status: Acute (4) HLD (hyperlipidemia): Status: Acute (5) Dementia: Status: Acute (6) GERD (gastroesophageal reflux disease): Status: Acute Reason for Visit Reason for Visit: CHEST PAIN Hospital Course Hospital Course Very pleasant 75-year-old gentleman with history of HTN, DM 2, HLD, hypothyroidism, dementia, GERD, hiatal hernia, history of CVA, was admitted for assessment management due to chest discomfort/pain. Noted to be cramping in nature. Later on admitting symptoms felt related to heartburn. In the hospital underwent assessment for acute [place], without suggestion on troponin series, EKG, additionally assessed by echocardiogram which showed normal ejection fraction, grade 1 diastolic dysfunction, mild AVR, mild PVR. CT angiogram done on presentation was negative for PE. Noted heavy coronary calcification. He additionally underwent assessment by nuclear perfusion scan with noted and discussed with him and his daughter medium sized area of old [place] versus scarring in basal to distal inferior and inferior lateral wall without micah-infarct ischemia. Negative for acute ischemia. He is currently chest pain-free. He is feeling well. Please continue to optimize coronary disease risk factors. While in the hospital was also maintained on famotidine. He is tolerating oral intake. As he currently states the pain did feel quite a bit like heartburn, he will be continued on PPI. With history of heartburn, hiatal hernia reported, discussed with them to avoid NSAIDs, discontinue naproxen. With persistent symptoms of dyspepsia, if he has never been evaluated may benefit from consideration of endoscopic evaluation. Please follow-up his liver parameters, including bilirubin. Noted mild elevated 2.1, 2.6. He currently does not have right upper quadrant pain. Tolerating oral intake as noted. However, is referred for additional assessment by right upper quadrant hepatobiliary ultrasound. Suspected less likely cholestatic disease given direct bilirubin is noted normal. Physical Exam Narrative: EXAM NARRATIVE: Accompanied by his daughter. Const: COMMON NORMALS: no acute distress and patient oriented x3 HENMT: COMMON NORMALS: oropharynx normal Neck/C-Spine: COMMON NORMALS: no JVD Resp: COMMON NORMALS: normal respiratory effort and clear to auscultation bilaterally AUSCULTATION: clear to auscultation bilaterally Cardio: COMMON NORMALS: no JVD, regular rhythm, S1 normal heart sound present, S2 normal heart sound present and No murmurs present (Cardio) RHYTHM: regular rhythm HEART SOUNDS: S1 normal heart sound present and S2 normal heart sound present GI: COMMON NORMALS: Normal to inspection, nondistended, normoactive bowel sounds present, Soft to palpation and non-tender PALPATION: Yes Soft to palpation Extremity: COMMON NORMALS: no joint enlargement and no pedal edema Neuro: COMMON NORMALS: patient oriented x3 and moves all extremities Skin: COMMON NORMALS: no rashes or lesions noted GENERAL SKIN EXAM: no rashes or lesions noted Discharge Data Data Completed and Pending: Completed Studies During Hospitalization Category Date Time Status CT angio chest PE protcl [id number] Urge nt Cat Scan 04/16/21 16:13 Completed Sestamibi Stress Test Request Routi ne Exams 04/16/21 17:01 Draft XR chest 1V micha ble [id number] Stat Exams 04/16/21 13:48 Completed NM shayne perf SPECT r/s* [id number] Routin e Nuc Med 04/18/21 17:01 Completed CV. echo complete * [id number] Routine Ultrasound 04/17/21 16:11 Completed Labs from last 24 hours 04/18/21 04/18/21 04/17/21 11:10 05:24 20:14 POC Glucose 228 H 163 H 169 H 04/17/21 17:26 POC Glucose 173 H Vitals: Last Vital Signs Temp 98.0 F 04/18/21 11:43 Pulse 51 L 04/18/21 11:43 Resp 17 04/18/21 11:43 BP 116/72 04/18/21 11:43 Pulse Ox 95 04/18/21 11:43 Discharge Plan Discharge Patient Disposition: Home Condition: Stable Prescriptions: New pantoprazole 40 mg tablet,delayed release (DR/EC) 40 mg PO DAILY 42 Days Qty: 42 RF: 0 Continued atorvastatin 40 mg tablet 40 mg PO DAILY RF: 0 levothyroxine 50 mcg tablet 50 mcg PO DAILY RF: 0 lisinopril 10 mg tablet 10 mg PO DAILY RF: 0 metformin 500 mg tablet extended release 24 hr 500 mg PO DAILY RF: 0 memantine 28 mg capsule,sprinkle,ER 24hr 28 mg PO DAILY RF: 0 Discontinued naproxen 500 mg tablet 500 mg PO BID PRN (Reason: Pain) RF: 0 Discharge Orders: Discharge Order (Routine); Ordered 04/18/21 Ordered By: Kvng Baker Other Ambulatory Orders: US abdomen limited [id number] (Routine) Timeframe: 2 Days Facility: [facility] - Location: Radiology [facility] Ordered By: Kvng Baker Referrals: Hector Graham [Primary Care Provider] - 04/22/21 9:20 am Discharge Diet: As Directed, Cardiac and Diabetic Discharge Activity: Increase activity as tolerated Patient Instructions: Diabetes and Diet, Coronary Artery Disease (GEN), Hiatal Hernia (GEN), Heart Healthy Diet (GEN), Dementia (GEN), Gastroesophageal Reflux Disease (GEN), Hypertension (GEN), Hyperlipidemia (GEN) Activity Restrictions/Additional Instructions: Please continue to optimize your risk factors for coronary disease with your primary doctor due to concern of noted possible old heart attack on stress test, continue to monitor your blood sugars closely, optimize control of diabetes. Please maintain heart healthy, diabetic diet. Monitor your blood pressures at home. Continue your blood pressure medications. Continue cholesterol medication. Please discuss regarding weight loss help with your primary doctor. Please discussed also regarding heartburn. Please do not continue naproxen, and avoid any other NSAIDs. Consider Tylenol for arthritis symptoms, making sure to take less than 3000 mg in a day. Consider avoiding foods that may trigger heartburn. Avoid coffee, chocolate, alcohol, mint, spicy foods, avoid eating 2 hours before bed. Consider elevation of head of bed to reduce heartburn at nighttime. Please have your primary doctor follow-up with your bilirubin level which is mildly elevated. Please note we are referring you also for follow-up with ultrasound of the gallbladder with gallbladder stones. Seek medical attention if you develop fever or severe right upper quadrant pain. Discharge Attestations Time Spent in Discharge Care*: greater than 30 min Quality Metrics Clinical Quality Measures During this hospital stay, did patient experience: None Coding Level of Care Code Acute Chg [facility] note Diagnoses Chest pain R07.9 HTN (hypertension) I10 Type 2 diabetes mellitus E11.9 HLD (hyperlipidemia) E78.5 Dementia F03.90 GERD (gastroesophageal reflux disease) K21.9
[2021-04-18 15:05] VITALS: BP 116/72; PULSE 51; RESP 17; TEMP 36.7; O2SAT 95
--- NOTE | 2021-04-18 17:01 | NMCV_ITS ---
NM shayne perf SPECT r/s* [id number] Usama Pisano Age: 75 Gender: M : 1945 Exam Date: 04/18/2021 07:37 Ordering Phys: Juanjo Morgan MD Technologist: BRIAN Arellano Exam Location: [facility] Indications: CHEST PAIN STRESS TEST Please see separate stress test report in [facility] for full findings IMAGE PROTOCOL Rest/Stress 1 Lexiscan Day Radiopharmaceutical Dose (mCi) Administration Site Administered by Rest: Tc-99m 11.0 IV BRIAN Puentes Sestamibi Stress:Tc-99m 33.0 IV BRIAN Puentes Sestamibi Rest: 18-Apr-2021 60 Discovery 630 Stress: 18-Apr-2021 30 Discovery 630 0.4mg Lexiscan. Images obtained in supine and prone position. SPECT RESULTS Technical Quality: Excellent Raw Data Analysis: Normal Image Corrections: No attenuation or motion correction applied Summed Stress Score: 8 Summed Rest Score: 4 Summed Difference Score: 4 PERFUSION FINDINGS Medium-sized area of fixed perfusion defect noted in basal distal inferior and infero lateral wall suggestive of old myocardial infarction versus scarring. FUNCTIONAL RESULTS (calculated via Gated SPECT) Stress Image LV EF (%): 71 Stress EDV (mL):63 TID: 0.93 Stress ESV (mL):18 Rest Image LV EF (%): 71 FUNCTIONAL FINDINGS: Inferior wall hypokinesis IMPRESSIONS Medium-sized area of old myocardial infarction versus scarring noted in basal to distal inferior and inferolateral wall without micah-infarct ischemia. This study is negative for ischemia. EKG segment will be documented separately. Noel William MD (Electronically Signed) Final Date: 18 April 2021 12:47 S
--- NOTE | 2021-04-21 09:55 | PC.SOCIAL ---
discharge follow up call made to patient. spoke with son in law, Zia. Patient is feeling better but continues to have some pain. I set up patients outpatient ultrasound for 04-22-21 at 0700. Patient has follow up appointment with Dr. Graham tomorrow also.
== END 2021-04-18 15:06 | disposition home or self-care (01) ==
LOC: ER 15:18 → MEDSURG 18:36
PROVIDERS: Admitting Provider Student in an Organized Health Care Education/Training Program; Emergency Provider Emergency Medicine; PCP Family Medicine; Visit Provider Student in an Organized Health Care Education/Training Program
DX: R07.9 Chest pain, unspecified (principal); I10 Essential (primary) hypertension; E11.9 Type 2 diabetes mellitus without complications; E78.5 Hyperlipidemia, unspecified; F03.90 Unspecified dementia, unspecified severity, without behavioral disturbance, psychotic disturbance, mood disturbance, and anxiety; K21.9 Gastro-esophageal reflux disease without esophagitis; E80.6 Other disorders of bilirubin metabolism; E03.9 Hypothyroidism, unspecified; Z86.73 Personal history of transient ischemic attack (TIA), and cerebral infarction without residual deficits; I35.1 Nonrheumatic aortic (valve) insufficiency; I37.1 Nonrheumatic pulmonary valve insufficiency; Z87.891 Personal history of nicotine dependence; Z79.4 Long term (current) use of insulin
CPT/HCPCS: 36415; 36416; 71045; 71275; 78452; 80048; 80053; 80061; 80076; 81003; 82607; 82746; 82962; 83036; 83540; 83550; 83735; 83880; 84100; 84145; 84443; 84484; 85025; 85378; 87426; 93005; 93017; 93306; 96361; 96372; 96374; 99285; A9500; G0378; J1650; J1815; J2405; J2785; J3490; Q9967

== ENCOUNTER 2021-04-22 06:55 | Outpatient (CLI) | payer MEDICARE, MEDICAID, SELFPAY ==
--- NOTE | 2021-04-22 07:15 | US_ITS ---
WS: [id number] RIGHT UPPER QUADRANT ULTRASOUND HISTORY: Hepatobiliary -elevated bilirubin COMPARISON: None available. Liver: 13.5 cm in length. Normal size liver. No bile duct dilatation or mass. Gallbladder: Normally distended gallbladder with no stones or wall thickening. CBD: 0.5 cm Pancreas: Not well visualized. Right kidney: 11.1 cm in length. Normal size and echogenicity. No hydronephrosis or mass. Aorta and IVC: Poorly visualized. No abnormality or aneurysm identified. No ascites. US/US abdomen limited [id number] IMPRESSION: 1. No bile duct dilatation. 2. Normal liver.
== END 2021-04-22 06:56 | disposition home or self-care (01) ==
LOC: RAD 07:00
PROVIDERS: PCP Family Medicine; Visit Provider Internal Medicine
DX: E80.6 Other disorders of bilirubin metabolism (principal)
CPT/HCPCS: 76705

== ENCOUNTER → 2021-08-21 12:01 | Outpatient (BNVA) | payer MEDICARE, MEDICAID, SELFPAY | PROVIDERS: PCP Family Medicine; Visit Provider Emergency Medicine | DX: R41.0 Disorientation, unspecified (principal); I63.9 Cerebral infarction, unspecified | CPT/HCPCS: 81000 ==

== ENCOUNTER → 2024-01-18 09:35 | Outpatient (BNVA) | payer MEDICARE, MEDICAID, SELFPAY | PROVIDERS: PCP Nurse Practitioner; Visit Provider Nurse Practitioner | DX: Z86.73 Personal history of transient ischemic attack (TIA), and cerebral infarction without residual deficits (principal); H53.9 Unspecified visual disturbance; R41.0 Disorientation, unspecified; I63.9 Cerebral infarction, unspecified; E11.9 Type 2 diabetes mellitus without complications; I69.398 Other sequelae of cerebral infarction; R26.9 Unspecified abnormalities of gait and mobility; K21.9 Gastro-esophageal reflux disease without esophagitis; J30.2 Other seasonal allergic rhinitis; E78.5 Hyperlipidemia, unspecified; Z76.89 Persons encountering health services in other specified circumstances | CPT/HCPCS: 80053; 83036; 84443; 85025 ==

== ENCOUNTER 2024-01-30 10:31 | Emergency (ER) | payer MEDICARE, MEDICAID, SELFPAY ==
[2024-01-30 10:37] VITALS: BP 142/90; PULSE 71; RESP 18; TEMP 36.8; O2SAT 98
--- NOTE | 2024-01-30 10:37 | XR_ITS ---
WS: [id number] PORTABLE CHEST HISTORY: Chest pain COMPARISON: 04/16/2021 Lungs are clear and well expanded. No pleural effusion or pneumothorax. Cardiac size: Normal. Mediastinum/Aorta: Normal mediastinum. Degenerative changes of the glenohumeral joints and AC joints. XR/XR chest 1V portable [id number] IMPRESSION: Unremarkable portable chest.
--- NOTE | 2024-01-30 10:37 | ECG_ITS ---
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 Measurements Intervals [place] Rate: 72 P: 3 CT: 164 QRS: -19 QRSD: 108 T: 63 QT: 406 QTc: 447 Interpretive Statements SINUS RHYTHM Compared to ECG 04/16/2021 15:55:23 T-wave abnormality no longer present Electronically Signed On 01-30-2024 17:06:14 CDT by Jesus Velazquez M.D. [id number]
--- NOTE | 2024-01-30 10:44 | ED_ITS ---
HPI - Chest Pain 2 General: Chief Complaint: Chest Pain Stated Complaint: chest pain Time Seen by Provider: 01/30/24 10:35 History of Present Illness: 78-year-old man with a history of hypert ension, hyperlipidemia and dementia who presents to the emergency room with report of chest pain. He is fairly advanced dementia and does not remember the pain. Apparently had some pain yesterday and then again today. Timing/chronology is a little bit unclear. EMS reports that he had some central chest pain. Was a pressure. No known cardiovascular history. Review of Systems 2 General: Reports: ROS unobtainable due to medical condition PFS ED 2 PFS: Medical History (Updated 01/18/24 @ 11:15 by LAUREL Graf) Confusion GERD (gastroesophageal reflux disease) Type 2 diabetes mellitus CVA (cerebral vascular accident) HLD (hyperlipidemia) HTN (hypertension) Dementia Hypothyroid Hiatal hernia Surgical History (Updated 04/16/21 @ 16:47 by Juanjo Morgan MD) No significant past surgical history Family History (Updated 04/16/21 @ 16:47 by Juanjo Morgan MD) Other CAD (coronary artery disease) Cancer Clotting disorder Diabetes Social History (Updated 04/16/21 @ 16:47 by Juanjo Morgan MD) Smoking and tobacco/nicotine status: former use of tobacco/nicotine Alcohol intake: never Substance/Drug Use: never Caregiver/support person: No Lives independently: Yes Housing: Other Details: trailor Marital status: / Physical Exam 2 Narrative: EXAM NARRATIVE: General: Alert, no acute distress. Skin: Warm, dry. Head: Normocephalic, atraumatic. Neck: Supple, trachea midline. Eye: Extraocular movements are intact. Ears, nose, mouth and throat: mucosa moist. Cardiovascular: Regular, Normal peripheral perfusion. Respiratory: Lungs are clear to auscultation, respirations are non-labored, breath sounds are equal, Symmetrical chest wall expansion. Gastrointestinal: Soft, Nontender, Non distended, Normal bowel sounds. Musculoskeletal: Normal ROM, no deformity. Neurological: Alert but not oriented, No focal neurological deficit observed. Psychiatric: Patient seems confused/demented. Course 2 Vital Signs: Vital signs: Vital Signs Temperature 98.2 F 01/30/24 10:37 Pulse Rate 62 01/30/24 13:36 Respiratory Rate 15 01/30/24 13:08 Blood Pressure 114/72 01/30/24 13:36 Pulse Oximetry 92 01/30/24 13:36 Oxygen Delivery Me thod Room Air 01/30/24 13:36 MDM - Chest Pain Medical Decision Making Differential diagnosis for patient with chest pain includes but is not limited to and based on the above HPI, review of systems and physical exam: Pneumonia. unstable angina. angina. Acute coronary syndrome / MA. Pulmonary embolism. Costochondritis / musculoskeletal. Pleurisy. Pericarditis. Esophageal spasm. Pancreatis. Cholecystitis. Workup: Lab work, chest X-ray and EKG ordered to evaluate, rule in and rule out above pathologies. EKG: Time 10:38 AM rate 72. Normal sinus rhythm, No ST-T changes, no ectopy, normal IN & QRS intervals, This was reviewed and interpreted by myself the ER physician at 10:40 AM Chest x-ray: No acute process. No infiltrate. No pneumothorax. No cardiomegaly. This was reviewed and interpreted by myself the ER physician. Lab Review: Laboratory results were reviewed and interpreted by myself the emergency room physician. Lab work is unremarkable. No leukocytosis. White count is 6. Hemoglobin is 13 which is normal. BUN/creatinine are 12 and 0.8. His sugar is slightly high at 178. Serial troponins are negative. Repeat EKG: Time 1240 rate 61. Normal sinus rhythm, No ST-T changes, no ectopy, normal IN & QRS intervals, This was reviewed and interpreted by myself the ER physician at 1245. No change from previous EKG. I reviewed the patient's medical record. Reexamination: Patient remained stable. Pleasantly confused. He had no chest pain while has been here. No altered mental status. No focal motor deficits. No increased work of breathing. Assessment and plan: Chest pain, noncardiac - Discharged home - Discussed plan with patient. Answered any questions. - Evaluation and treatment of this problem were appropriate in the emergency setting. Lab Data 01/30/24 10:50 01/30/24 10:50 Radiology Impressions Chest X-Ray 01/30/24 10:37 IMPRESSION: Unremarkable portable chest. Laboratory Results WBC 6.08 10^3/uL (3.29-11.43) 01/30/24 10:50 RBC 4.70 10^6/uL (3.85-5.65) 01/30/24 10:50 Hgb 13.20 g/dL (11.27-16.99) 01/30/24 10:50 Hct 42.2 % (37-53) 01/30/24 10:50 MCV 89.8 fl (82-101) 01/30/24 10:50 MCH 28.1 pg (27-33) 01/30/24 10:50 MCHC 31.3 g/dL (30-55) 01/30/24 10:50 RDW 15.6 % (12.1-15.1) H 01/30/24 10:50 Plt Count 252 10^3/cmm (157-399) 01/30/24 10:50 MPV 9.7 fL (7.4-10.4) 01/30/24 10:50 Neut % (Auto) 67.7 % 01/30/24 10:50 Lymph % (Auto) 21.4 % 01/30/24 10:50 Jay % (Auto) 7.6 % 01/30/24 10:50 Eos % (Auto) 2.0 % 01/30/24 10:50 Baso % (Auto) 1.0 % 01/30/24 10:50 Neut # (Auto) 4.12 10^3/uL (1.8-7.7) 01/30/24 10:50 Lymph # (Auto) 1.3 10^3/uL (0.8-4.8) 01/30/24 10:50 Jay # (Auto) 0.5 10^3/uL (0.2-0.9) 01/30/24 10:50 Eos # (Auto) 0.1 10^3/uL (0.0-0.8) 01/30/24 10:50 Baso # (Auto) 0.1 10^3/uL (0.0-0.1) 01/30/24 10:50 Nucleated RBC % (auto) 0 % 01/30/24 10:50 Nucleated RBCs # 0.0 /100WBC 01/30/24 10:50 Sodium 135 mmol/L (136-145) L 01/30/24 10:50 Potassium 4.2 mmol/L (3.5-5.1) 01/30/24 10:50 Chloride 100 mmol/L (98-107) 01/30/24 10:50 Carbon Dioxide 23 mmol/L (22-29) 01/30/24 10:50 Anion Gap 16.2 (5-19) 01/30/24 10:50 BUN 12 mg/dL (8-23) 01/30/24 10:50 Creatinine 0.8 mg/dL (0.7-1.2) 01/30/24 10:50 GFR Calculation Not Reportable 01/30/24 10:50 Glucose 178 mg/dL (65-115) H 01/30/24 10:50 Calculated Osmolality 284 mOsm/kg (285-295) L 01/30/24 10:50 Calcium 8.8 mg/dL (8.5-10.5) 01/30/24 10:50 Total Bilirubin 1.5 mg/dL (0.15-1.2) H 01/30/24 10:50 AST 22 U/L (0-40) 01/30/24 10:50 ALT 23 U/L (0-41) 01/30/24 10:50 Alkaline Phosphatase 70 U/L (40-130) 01/30/24 10:50 Troponin T Baseline 9 ng/L (0-15) 01/30/24 10:50 Troponin T 120 Minute 7.89 ng/L (0-15) 01/30/24 12:52 Delta Troponin T -1.11 ABS# (0-10) L 01/30/24 12:52 Total Protein 7.7 g/dL (6.6-8.7) 01/30/24 10:50 Albumin 4.2 g/dL (3.5-5.2) 01/30/24 10:50 Globulin 3.5 g/dL (1.3-4.6) 01/30/24 10:50 All radiology interpretation(s) finalized by discharge Discharge Plan Discharge Patient Disposition: Home Condition: Stable Prescriptions: No Action aspirin [Adult Aspirin Regimen] 81 mg tablet,delayed release (DR/EC) 81 mg PO DAILY magnesium 200 mg tablet 100 mg PO DAILY clopidogrel 75 mg tablet 75 mg PO DAILY Qty: 30 0RF pioglitazone 15 mg tablet 15 mg PO DAILY Qty: 30 0RF mirtazapine 7.5 mg tablet 7.5 mg PO DAILY Qty: 90 3RF meloxicam 15 mg tablet 15 mg PO DAILY Qty: 90 1RF levothyroxine 50 mcg tablet 50 mcg PO DAILY Qty: 90 1RF docusate sodium [Colace] 100 mg capsule 100 mg PO DAILY Qty: 90 1RF atorvastatin 40 mg tablet 40 mg PO DAILY memantine 28 mg capsule,sprinkle,ER 24hr 28 mg PO DAILY lisinopril 10 mg tablet 5 mg PO DAILY donepezil 10 mg tablet 10 mg PO BEDTIME tamsulosin 0.4 mg capsule 0.4 mg PO QPM dimenhydrinate 50 mg Tablet 50 mg PO Q8H PRN (Reason: Nausea And Vomiting) metformin 500 mg tablet extended release 24 hr 500 mg PO DAILY Discharge Orders: Discharge ED (Routine); Ordered 01/30/24 Ordered By: Indiana Wagoner Referrals: Raven Mclean FNP [Primary Care Provider] - Discharge Diet: Usual diet Discharge Activity: Resume usual activity Patient Instructions: Noncardiac Chest Pain (ED) Activity Restrictions/Additional Instructions: Thank you for choosing [facility] for your healthcare needs today. Please realize this is an emergency room and that we are providing you with a medical screening exam and this may not be complete and all inclusive of all the testing and or work up that you may need to determine your ailment or severity of your illness. You have been screened and evaluated and felt safe for discharge. Health conditions do change or evolve sometimes and as such it is important that you follow up with your Primary Doctor to be re checked, 3-5 days is a general good time frame for follow up. You are always welcome to return to the ED for re assessment if your symptoms are worsening or you have new concerns Coding Level of Care Code ED [facility] for Francisco J Friedman
[2024-01-30 10:57] LABS: Basophils # 0.1 10^3/uL (0.0-0.1); Eosinophils # 0.1 10^3/uL (0.0-0.8); Hematocrit 42.2 % (37-53); Lymphocytes # 1.3 10^3/uL (0.8-4.8); Lymphocytes % 21.4 %; Mean Corpuscular HGB Conc 31.3 g/dL (30-55); Mean Corpuscular Hemoglobin 28.1 pg (27-33); Mean Corpuscular Volume 89.8 fl (82-101); Mean Platelet Volume 9.7 fL (7.4-10.4); Monocytes # 0.5 10^3/uL (0.2-0.9); Monocytes % 7.6 %; Neutrophils # 4.12 10^3/uL (1.8-7.7); Neutrophils % 67.7 %; Nucleated Red Blood Cells % 0 %; Platelet Count 252 10^3/cmm (157-399); Red Cell Distribution Width 15.6 % (12.1-15.1); White Blood Count 6.08 10^3/uL (3.29-11.43)
[2024-01-30 11:05] VITALS: BP 142/98; PULSE 62; O2SAT 96
[2024-01-30 11:14] LABS: Troponin(5th) Baseline 9 ng/L (0-15)
[2024-01-30 11:19] LABS: Alanine Aminotransferase 23 U/L (0-41); Albumin Level 4.2 g/dL (3.5-5.2); Alkaline Phosphatase 70 U/L (40-130); Anion Gap 16.2 (5-19); Aspartate Amino Transferase 22 U/L (0-40); Blood Urea Nitrogen 12 mg/dL (8-23); Calcium 8.8 mg/dL (8.5-10.5); Carbon Dioxide 23 mmol/L (22-29); Chloride 100 mmol/L (98-107); Globulin 3.5 g/dL (1.3-4.6); Glucose 178 mg/dL (65-115); Osmolality Calculated 284 mOsm/kg (285-295); Potassium 4.2 mmol/L (3.5-5.1); Sodium 135 mmol/L (136-145); Total Bilirubin 1.5 mg/dL (0.15-1.2); Total Protein 7.7 g/dL (6.6-8.7)
[2024-01-30 12:18] VITALS: BP 125/73; PULSE 69; O2SAT 98
--- NOTE | 2024-01-30 12:40 | ECG_ITS ---
[facility] Test Date: 2024-01-30 Pat Name: Usama Pisano Department: Room: Gender: Male [address] Clerk: : 1945 Requested By: Indiana Dominguez Order Number: [id number] Kevin MD: Jesus Velazquez M.D. Measurements Intervals [place] Rate: 61 P: 9 WI: 149 QRS: -8 QRSD: 98 T: 60 QT: 407 QTc: 411 Interpretive Statements SINUS RHYTHM Compared to ECG 01/30/2024 10:37:08 No significant changes Electronically Signed On 01-30-2024 17:07:49 CDT by Jesus Velazquez M.D. [id number]
[2024-01-30 13:08] VITALS: PULSE 63; RESP 15; O2SAT 99
[2024-01-30 13:18] LABS: Troponin 5 2HR 7.89 ng/L (0-15)
[2024-01-30 13:19] LABS: Troponin 5 2HR Delta -1.11 ABS# (0-10)
[2024-01-30 13:36] VITALS: BP 114/72; PULSE 62; O2SAT 92
[2024-01-30 13:56] VITALS: BP 113/62; PULSE 68; O2SAT 98
== END 2024-01-30 13:57 | disposition home or self-care (01) ==
PROVIDERS: Emergency Provider Emergency Medicine; PCP Nurse Practitioner
DX: R07.9 Chest pain, unspecified (principal); E11.9 Type 2 diabetes mellitus without complications; Z86.73 Personal history of transient ischemic attack (TIA), and cerebral infarction without residual deficits; E78.5 Hyperlipidemia, unspecified; I10 Essential (primary) hypertension; F03.90 Unspecified dementia, unspecified severity, without behavioral disturbance, psychotic disturbance, mood disturbance, and anxiety; Z87.891 Personal history of nicotine dependence; Z79.02 Long term (current) use of antithrombotics/antiplatelets; Z79.82 Long term (current) use of aspirin
CPT/HCPCS: 36415; 71045; 80053; 84484; 85025; 93005; 99285